=== PATIENT | male | born 1965 | race Two or more races ===

== ENCOUNTER → 2018-06-16 | Outpatient (CLI) | payer OTHER ==
[2018-06-16 08:16] LABS: Basophils # (auto) 0 uL; Basophils % (auto) 0.9 % (0.0-2.0); Eosinophils # (auto) 0.1 uL; Eosinophils % (auto) 2.4 % (0.0-7.0); Hematocrit 43.9 % (41.0-53.0); Hemoglobin 14.7 g/dL (13.5-17.5); Lymphocytes # (auto) 1.9 uL; Lymphocytes % (auto) 37.1 % (10.0-50.0); Mean Corpuscular Hgb Conc. 33.6 g/dL (32.0-36.0); Mean Corpuscular Volume 101.4 fL (80.0-100.0); Monocytes # (auto) 0.4 uL; Neutrophils # (auto) 2.7 uL; Neutrophils % (auto) 51.6 % (37.0-80.0); Platelet Count (auto) 208 10^3/uL (140-450); Red Blood Cells 4.33 10^6/uL (4.5-5.90); Red Cell Distribution Width 13.7 % (11.8-14.3); White Blood Cell 5.2 10^3/uL (4.4-10.8)
[2018-06-16 08:29] LABS: Urine Bacteria NONE SEEN /hpf (None Seen); Urine Blood Negative /uL (Negative); Urine Budding Yeast MANY /hpf (None Seen); Urine Specific Gravity 1.015 (1.001-1.035); Urine WBC 6 /hpf (0 - 3); Urine WBC Clumps PRESENT /hpf (None Seen)
[2018-06-16 08:35] LABS: INR 0.94 (0.9-1.15); Prothrombin Time 10.1 sec (9.27-12.13)
[2018-06-16 08:38] LABS: Calcium 9.5 mg/dL (8.5-10.1); Potassium 4.1 mmol/L (3.5-5.1)
[2018-06-16 08:40] LABS: Free T4 (Free Thyroxine) 1.16 ng/dL (0.89-1.76)
[2018-06-16 08:46] LABS: BUN/Creatinine Ratio 20.2; Bilirubin, Total 0.3 mg/dL (0.2-1.0); Total Protein 7.1 g/dL (6.4-8.2)
[2018-06-16 10:17] LABS: Alcohol, Urine < 3.0 mg/dL (0-5); Amphetamine Screen, Urine NEGATIVE (NEGATIVE); Barbiturate Scree,Urine NEGATIVE (NEGATIVE); Benzodiazephine Screen, Urine NEGATIVE (NEGATIVE); Cannabinoid Screen, Urine POSITIVE (NEGATIVE); Cocaine Screen, Urine NEGATIVE (NEGATIVE); Phencyclidine Screen, Urine NEGATIVE (NEGATIVE)
[2018-06-16 10:23] LABS: Opiate Scree,Urine NEGATIVE (NEGATIVE)
[2018-06-17 12:36] LABS: Hepatitis A Ab IgM Negative
[2018-06-17 12:37] LABS: Hepatitis B Core IgM Negative; Hepatitis B Surface Antigen Negative (Negative); Hepatitis C Antibody Negative (Negative)
== END | disposition home or self-care (01) ==
LOC: LAB 07:34
PROVIDERS: ATTEND Internal Medicine
DX: R63.4 Abnormal weight loss (principal)
CPT/HCPCS: 36415; 80053; 80061; 80074; 80307; 81001; 82105; 82607; 83036; 84439; 84443; 85025; 85610; 85730; 86703

== ENCOUNTER → 2018-06-25 | Outpatient (CLI) | payer OTHER ==
[~2018-06-25] MED LIST: ALBUTEROL SULF 2.5 MG/0.5ML(0.5%) NEB SOLN ONE
== END | disposition home or self-care (01) ==
LOC: RT 08:43
PROVIDERS: ATTEND Internal Medicine Pulmonary Disease
DX: J44.9 Chronic obstructive pulmonary disease, unspecified (principal)
CPT/HCPCS: 94060; J7611

== ENCOUNTER → 2018-06-30 | Outpatient (CLI) | payer OTHER | END | disposition home or self-care (01) | LOC: LAB 07:20 | PROVIDERS: ATTEND Internal Medicine | DX: Z01.812 Encounter for preprocedural laboratory examination (principal) | CPT/HCPCS: 36415; 82565; 84520 ==

== ENCOUNTER 2018-07-19 18:10 | Inpatient (IN) | payer OTHER ==
[~2018-07-19] VITALS: Ht 170.2 cm; Wt 50.4 kg
[2018-07-19] MEDS ORDERED: MORPHINE SULFATE 4 MG/ML SYR/VIAL IV ONE (19:30)
[2018-07-19] MEDS ORDERED: SODIUM CHLORIDE 0.9% 250 ML IV ONE (19:30)
[2018-07-19] MEDS ORDERED: ONDANSETRON HCL 4 MG/2 ML VIAL IV ONE (19:30)
[2018-07-19 19:46] LABS: Basophils # (auto) 0 uL; Eosinophils # (auto) 0 uL; Eosinophils % (auto) 0.4 % (0.0-7.0); Hemoglobin 14.1 g/dL (13.5-17.5); Lymphocytes # (auto) 2.8 uL; Mean Corpuscular Hgb Conc. 34.1 g/dL (32.0-36.0); Monocytes # (auto) 0.6 uL; Neutrophils # (auto) 3.8 uL; Nucleated Red Blood Cells % 0.1 %; White Blood Cell 7.2 10^3/uL (4.4-10.8)
[2018-07-19 19:48] LABS: Basophils % (auto) 0.4 % (0.0-2.0); Hematocrit 41.2 % (41.0-53.0); Lymphocytes % (auto) 38.3 % (10.0-50.0); Mean Corpuscular Hemoglobin 34.5 pg (28.0-32.0); Monocytes % (auto) 8.7 % (0.0-12.0); Neutrophils % (auto) 52.2 % (37.0-80.0); Platelet Count (auto) 209 10^3/uL (140-450); Red Blood Cells 4.08 10^6/uL (4.5-5.90); Red Cell Distribution Width 13.2 % (11.8-14.3)
[2018-07-19 19:58] LABS: Albumin 3.9 g/dL (3.4-5.0); Anion Gap 14 (5-15); Blood Urea Nitrogen 19 mg/dL (7-18); Carbon Dioxide 18 mmol/L (21-32); Chloride 106 mmol/L (98-107); Glucose 90 mg/dL (74-106); Magnesium 2.3 mg/dL (1.6-2.6); Potassium 4.1 mmol/L (3.5-5.1); Sodium 138 mmol/L (136-145)
[2018-07-19 20:05] LABS: Alanine Aminotransferase 20 U/L (16-61); Alkaline Phosphatase 70 U/L (45-117); Aspartate Aminotransferase 26 U/L (15-37); Bilirubin, Total 0.8 mg/dL (0.2-1.0); GFR African American 93 mL/min; GFR Non-African American 77 mL/min; Total Protein 7.1 g/dL (6.4-8.2)
[2018-07-19] MEDS ORDERED: FAMOTIDINE (10MG/ML) 2ML VL IV ONE (21:15)
[2018-07-19] MEDS ORDERED: methylPREDNISolone SOD SUCC 125 MG/2 ML VL IV ONE (21:15)
[2018-07-19] MEDS ORDERED: PROMETHAZINE HCL 25 MG/ML 1ML IV ONE (21:15)
[2018-07-19] MEDS ORDERED: IPRATROPIUM BROM 0.5 MG/2.5ML INH SOL NEB ONE (21:15)
[2018-07-19 21:16] VITALS: BP 100/56
[2018-07-19 21:37] LABS: BUN/Creatinine Ratio 17.6
[2018-07-19 22:33] LABS: INR 1.01 (0.9-1.15); Partial Thromboplastin Time 28.2 sec (23.64-32.05)
[2018-07-19 23:04] LABS: BUN/Creatinine Ratio 19.6; Calcium 8.1 mg/dL (8.5-10.1); Potassium 3.8 mmol/L (3.5-5.1)
[2018-07-19] MEDS ORDERED: ACETAMINOPHEN 500 MG TAB PO PRN (23:15)
[2018-07-19] MEDS ORDERED: ONDANSETRON HCL 4 MG/2 ML VIAL IV PRN (23:15)
[2018-07-19] MEDS ORDERED: TEMAZEPAM 15 MG CAP PO PRN (23:15)
[2018-07-19] MEDS ORDERED: ALBUTEROL SULF 2.5 MG/0.5ML(0.5%) NEB SOLN NEB PRN (23:15)
[2018-07-19] MEDS ORDERED: IPRATROPIUM BROM 0.5 MG/2.5ML INH SOL NEB PRN (23:15)
[2018-07-20] VITALS (7 sets, daily range): BP systolic 91–121; BP diastolic 56–84
--- NOTE | 2018-07-20 01:30 | NUR ---
MS admit from ER SHANELARRY admitted to [facility]. Patient oriented to JERMAINE SALINAS RN primary RN, unit, room, bed, and unit policies regarding patient care and visiting hours. Patient weighed by bedscale and encouraged to call if they need something. All questions and concerns addressed, patient verbalized understanding.
[2018-07-20] MEDS: HYDROcodone-ACET 5/325MG TAB PO PRN ×4 (02:00→22:20)
[2018-07-20] MEDS: ALBUTEROL SULF 2.5 MG/0.5ML(0.5%) NEB SOLN NEB SCH ×6 (02:02→23:33)
[2018-07-20] MEDS: IPRATROPIUM BROM 0.5 MG/2.5ML INH SOL NEB SCH ×6 (02:02→23:33)
--- NOTE | 2018-07-20 04:36 | NUR ---
Rounds Patient in bed asleep with breathing even and unlabored. No signs of pain noted. Will continue to monitor.
[2018-07-20] MEDS ORDERED: PANTOPRAZOLE 40 MG TAB PO SCH (06:00)
[2018-07-20 06:30] LABS: Basophils # (auto) 0 uL; Eosinophils # (auto) 0 uL; Hemoglobin 13.3 g/dL (13.5-17.5); Monocytes # (auto) 0 uL; Monocytes % (auto) 0.7 % (0.0-12.0); White Blood Cell 6.4 10^3/uL (4.4-10.8)
[2018-07-20 06:34] LABS: Basophils % (auto) 0.5 % (0.0-2.0); Eosinophils % (auto) 0.2 % (0.0-7.0); Hematocrit 39.4 % (41.0-53.0); Lymphocytes # (auto) 0.6 uL; Mean Corpuscular Hemoglobin 34.5 pg (28.0-32.0); Mean Corpuscular Hgb Conc. 33.7 g/dL (32.0-36.0); Mean Corpuscular Volume 102.2 fL (80.0-100.0); Neutrophils # (auto) 5.7 uL; Neutrophils % (auto) 88.6 % (37.0-80.0); Platelet Count (auto) 181 10^3/uL (140-450); Red Blood Cells 3.85 10^6/uL (4.5-5.90); Red Cell Distribution Width 13.4 % (11.8-14.3)
[2018-07-20 06:57] LABS: Calcium 8.4 mg/dL (8.5-10.1); Potassium 4.4 mmol/L (3.5-5.1)
[2018-07-20 07:01] LABS: Amylase 105 U/L (25-115); Lipase 114 U/L (73-393)
--- NOTE | 2018-07-20 07:28 | NUR ---
Endorsed care to day shift RN.
--- NOTE | 2018-07-20 08:00 | NUR ---
RECEIVED PATIENT ALERT AND ORIENTED X4, NOT IN DISTRESS LUNG SOUNDS WHEEZING IN BILATERAL UPPER AND LOWER LOBES, RR=18 SAT=95%, DENIED SOB OR CHEST PAIN, DEEP BREATHING AND COUGHING WAS ENCOURAGED, VERBALIZED AND DEMONSTRATED WELL, HEART RATE=78, ABDOMEN SOFT WITH ACTIVE BS, C/O LT. LOWER QUADRANT ABDOMINAL PAIN L=05/19, LAST BM=07/19/18 REPORTED, TOLERATED 100% OF BREAKFAST TRAY, BILATERAL UPPER AND LOWER EXTREMITIES EQUALLY STRONG STRENGTH, RADIAL AND PEDAL PULSES PALPABLE, RESTING ON BED, HEAD OF BED ON LOW POSITION, RAILS UP X2, CALL LIGHT ON REACH, PENDING GI CONSULT TODAY, WILL CONTINUE MONITORING.
--- NOTE | 2018-07-20 11:27 | NUR ---
Not in distress, C/O pain L=08/18, [place] PO PRN was given, resting on bed, family at bed side, pending Stool Sample, sample container and hut provided in bathroom, education was provided, verbalized understanding, will continue monitoring.
[2018-07-20] MEDS: SODIUM CHLORIDE 0.9% 1,000 ML IV SCH (15:00)
--- NOTE | 2018-07-20 15:00 | NUR ---
NOT IN DISTRESS, DENIED PAIN, AT THIS MOMENT, AT BED SIDE, GI CONSULT WAS DONE, PENDING CARDIAC AND PULMONARY CONSULT, WILL CONTINUE MONITORING.
--- NOTE | 2018-07-20 19:10 | NUR ---
Opening Shift Note Assumed care of patient. Patient awake and alert, at bed side. No S/S of distress/SOB or pain. Instructed on POC and to call for assist PRN, will continue to monitor for changes PRN.
--- NOTE | 2018-07-20 19:42 | NUR ---
DENIED PAIN, RESTING ON BED, SITTER AT BED SIDE, REPORT WAS GIVEN TO THE CORRECTIONAL COUNSELOR/CASE MANAGER EZEQUIEL. Addendum: 07/20/18 at 1951 by Neisha Lagos RN WRONG TEXT
--- NOTE | 2018-07-20 19:52 | NUR ---
DENIED PAIN, RESTING ON BED, REPORT WAS GIVEN TO THE FOREMAN/PILE DRIVING AND ERECTION RN.
[2018-07-20] MEDS: PANTOPRAZOLE 40 MG TAB PO SCH (22:14)
[2018-07-20 22:17] LABS: Urine Bacteria NONE SEEN /hpf (None Seen); Urine Blood Negative /uL (Negative); Urine Hyaline Cast FEW /lpf (0 - 2); Urine Specific Gravity 1.022 (1.001-1.035); Urine WBC 1 /hpf (0 - 3)
[2018-07-20 22:33] LABS: Alcohol, Urine < 3.0 mg/dL (0-5); Amphetamine Screen, Urine NEGATIVE (NEGATIVE); Barbiturate Scree,Urine NEGATIVE (NEGATIVE); Benzodiazephine Screen, Urine NEGATIVE (NEGATIVE); Cocaine Screen, Urine NEGATIVE (NEGATIVE); Opiate Scree,Urine POSITIVE (NEGATIVE); Phencyclidine Screen, Urine NEGATIVE (NEGATIVE)
[2018-07-20 22:45] LABS: Cannabinoid Screen, Urine POSITIVE (NEGATIVE)
[2018-07-21] MEDS: ALBUTEROL SULF 2.5 MG/0.5ML(0.5%) NEB SOLN NEB SCH ×6 (02:00→22:00)
[2018-07-21] MEDS: IPRATROPIUM BROM 0.5 MG/2.5ML INH SOL NEB SCH ×6 (02:00→22:00)
[2018-07-21] MEDS: HYDROcodone-ACET 5/325MG TAB PO PRN ×2 (02:00→14:25)
[2018-07-21 06:25] LABS: Basophils # (auto) 0 uL; Eosinophils # (auto) 0 uL; Eosinophils % (auto) 0.1 % (0.0-7.0); Mean Corpuscular Hemoglobin 34.3 pg (28.0-32.0); Monocytes # (auto) 0.9 uL; Neutrophils # (auto) 10.4 uL; White Blood Cell 13.2 10^3/uL (4.4-10.8)
[2018-07-21 06:28] LABS: Basophils % (auto) 0.2 % (0.0-2.0); Calcium 8.7 mg/dL (8.5-10.1); Hematocrit 38.7 % (41.0-53.0); Hemoglobin 13.1 g/dL (13.5-17.5); Lymphocytes # (auto) 1.8 uL; Lymphocytes % (auto) 13.3 % (10.0-50.0); Mean Corpuscular Hgb Conc. 33.9 g/dL (32.0-36.0); Monocytes % (auto) 7.2 % (0.0-12.0); Neutrophils % (auto) 79.2 % (37.0-80.0); Platelet Count (auto) 192 10^3/uL (140-450); Potassium 3.9 mmol/L (3.5-5.1); Red Blood Cells 3.84 10^6/uL (4.5-5.90); Red Cell Distribution Width 13.3 % (11.8-14.3)
[2018-07-21] MEDS: SODIUM CHLORIDE 0.9% 1,000 ML IV SCH (07:40)
--- NOTE | 2018-07-21 08:00 | NUR ---
RECEIVED PATIENT ALERT AND ORIENTED X4, NOT IN DISTRESS LUNG SOUNDS WHEEZING IN BILATERAL UPPER AND LOWER LOBES, RR=18 SAT=96%, DENIED SOB OR CHEST PAIN, DEEP BREATHING AND COUGHING WAS ENCOURAGED, VERBALIZED AND DEMONSTRATED WELL, HEART RATE=66, ABDOMEN SOFT WITH ACTIVE BS, KEEP NPO, LAST BM=07/19/18 REPORTED, BILATERAL UPPER AND LOWER EXTREMITIES MILD WEAKNESS NOTED, RADIAL AND PEDAL PULSES PALPABLE, RESTING ON BED, HEAD OF BED ON LOW POSITION, RAILS UP X2, CALL LIGHT ON REACH, PENDING PULMONARY CONSULT AND CARDIAC STRESS TEST TODAY, WILL CONTINUE MONITORING.
--- NOTE | 2018-07-21 08:11 | NUR ---
[facility] WAS CALLED FOR STRESS TEST TIMING FOLLOW UP, LEFT A MESSAGE AND WAITING FOR CALL BACK.
[2018-07-21] MEDS ORDERED: ADENOSINE 42 MG in GIVE UN-DILUTED 0 ML IV STA (08:34)
[2018-07-21 09:00] VITALS: BP_SYST 105; BP_SYST 118; BP_DIAS 65; BP_DIAS 82
[2018-07-21 09:29] VITALS: BP 135/78
--- NOTE | 2018-07-21 10:44 | NUR ---
WENT ON WC TO STRESS TEST AND CAME BACK, TOLERATED WELL, SANDWICH AND ORANGE JUICE PROVIDED, AT BED SIDE, NOT IN DISTRESS, DENIED PAIN, SITTING ON BED, WILL CONTINUE MONITORING.
[2018-07-21] MEDS: PANTOPRAZOLE 40 MG TAB PO SCH ×2 (11:39→22:00)
[2018-07-21 13:00] VITALS: BP 111/70
[2018-07-21 17:00] VITALS: BP 131/79
--- NOTE | 2018-07-21 18:19 | NUR ---
RT NOTE: PT SEEN FOR MED NEB TX @ THIS TIME. PT REFUSED MED NEB. PT STATED "GO AWAY I WANT TO SLEEP" UNABLE TO CHECK VITAL SIGNS DUE TO PT BEING COVERED WITH BLANKETS. WILL ATTEMPT AGAIN @ 2200. NO SOB OR DISTRESS NOTED @ THIS TIME.
--- NOTE | 2018-07-21 19:23 | NUR ---
NOT IN DISTRESS, DENIED PAIN, RESTING ON BED, REPORT WAS GIVEN TO THE TELEVISION AUDIO ENGINEER RN.
--- NOTE | 2018-07-21 19:40 | NUR ---
Opening Shift Note Assumed care of patient. Patient laying comfortably in bed, sleeping eye mask on, breathing even, no signs of respiratory distress, no facial grimace for pain. at bedside at this time. Patient wants to go to sleep and does not want to be disturbed. Patient refusing physical assessment and all patient care at this time. Patient aware of POC and to call for assist PRN, will continue to monitor for changes Q1hr and PRN.
--- NOTE | 2018-07-21 22:00 | NUR ---
Patient refusing scheduled medication and all patient care at this time. Will continue to monitor q 1 hour and prn.
--- NOTE | 2018-07-21 22:00 | NUR ---
PATIENT REFUSED 22:00 VITALS. EZEQUIEL SAUCEDA.
--- NOTE | 2018-07-21 22:01 | NUR ---
RT NOTE: PT SEEN FOR MED NEB TX @ THIS TIME. PT REFUSED. PT STATED HE WANTED TO BE LEFT ALONE TO SLEEP AND NOT TO BE WOKEN UP AGAIN. SPO2 99% ON ROOM AIR, HR 98, RR 22. NO SOB OR DISTRESS NOTED.
[2018-07-22] MEDS: SODIUM CHLORIDE 0.9% 1,000 ML IV SCH (00:39)
--- NOTE | 2018-07-22 05:00 | NUR ---
PATIENT REFUSED 05:00 VITALS. EZEQUIEL SAUCEDA.
[2018-07-22] MEDS: ALBUTEROL SULF 2.5 MG/0.5ML(0.5%) NEB SOLN NEB SCH ×3 (06:00→09:38)
[2018-07-22] MEDS: IPRATROPIUM BROM 0.5 MG/2.5ML INH SOL NEB SCH ×3 (06:00→09:38)
--- NOTE | 2018-07-22 06:10 | NUR ---
Respiratory note: SCHEDULED MED NEB TX NOT GIVEN. PT REFUSED AND STATED HE DID NOT WANT ANYTHING DONE UNTIL D/C. NO RESP DISTRESS NOTED. NO VITALS TAKEN.
--- NOTE | 2018-07-22 07:10 | NUR ---
Patient had been refusing care for the whole shift. Patient refused vital signs, blood draw, and scheduled medication. Patient's called, updated with patient's status after password verification. All questions and concerns addressed. Patient's verbalized understanding. Report given to AtiyaRN and EZEQUIEL Munson.
--- NOTE | 2018-07-22 07:45 | NUR ---
Opening Note Upon entering room, patient was asleep with eyemask on, no s/s of distress at this time. Will continue to monitor Q1hr and PRN. Addendum: 07/22/18 at 1041 by PABLO HOLT RN RN Call light within reach.
--- NOTE | 2018-07-22 08:30 | NUR ---
Patient refusing all care at this time. Will check on patient Q1h. Addendum: 07/22/18 at 1047 by PABLO HOLT RN RN Amended: Links added.
--- NOTE | 2018-07-22 09:38 | NUR ---
Respiratory note: MARYA MED NEB TX NOT ADMINISTERED. PT REFUSING AT THIS TIME. NO RESP DISTRESS NOTED.
--- NOTE | 2018-07-22 09:57 | NUR ---
Patient requesting to leave AMA Upon entering room to give patient medication, patient states "It's time to go, I have no reason to be here." Primary RN asked if he wanted to talk to the doctor, asked how he was feeling for the day, if he wanted his medications, patient stated "It's time to go, thank you." Primary RN asked if he would sign an AMA form, and he said "yes". Primary RN asked if he has a ride, he stated "I can get a ride when it's time to go." Primary RN stated, "I will arrange that for you." Will get form for patient to sign. Will notify gore seamer.
--- NOTE | 2018-07-22 10:20 | NUR ---
Patient ready to leave Patient two IVs to the right forearm removed and pressure bandages applied, removed his Patient ID band. AMA form is signed. No s/s of distress at time of departure. Patient ambulatory upon departure.
--- NOTE | 2018-07-22 10:25 | NUR ---
Patient Signed AMA form Patient stated "I have no problem waiting in the lobby for my ."
== END 2018-07-22 10:30 | disposition left against medical advice (07) | DRG 191 ==
LOC: ER 18:19 → OVERFLOW 23:28 → WEST WING 23:47
PROVIDERS: ADMIT Nurse Practitioner Family; ATTEND Internal Medicine
DX: J44.1 Chronic obstructive pulmonary disease with (acute) exacerbation (principal); Z68.1 Body mass index [BMI] 19.9 or less, adult; J84.9 Interstitial pulmonary disease, unspecified; I10 Essential (primary) hypertension; E86.0 Dehydration; R63.4 Abnormal weight loss; R10.9 Unspecified abdominal pain; Z53.21 Procedure and treatment not carried out due to patient leaving prior to being seen by health care provider; Z88.8 Allergy status to other drugs, medicaments and biological substances; Z87.891 Personal history of nicotine dependence
CPT/HCPCS: 36415; 71045; 74176; 78452; 80048; 80053; 80307; 81001; 82150; 83690; 83735; 84484; 85025; 85379; 85610; 85730; 93005; 93017; 93306; 94640; 96361; 96374; 96375; G0378; J0153; J2405; J3490

== ENCOUNTER 2018-09-06 09:14 | Day surgery (SDC) | payer OTHER ==
[2018-09-03 14:39] LABS: Basophils # (auto) 0 uL; Eosinophils # (auto) 0.1 uL; Monocytes # (auto) 0.6 uL; Neutrophils # (auto) 4.7 uL
[2018-09-03 14:40] LABS: Basophils % (auto) 0.6 % (0.0-2.0); Eosinophils % (auto) 0.9 % (0.0-7.0); Hematocrit 42.9 % (41.0-53.0); Hemoglobin 14.9 g/dL (13.5-17.5); Lymphocytes % (auto) 35.3 % (10.0-50.0); Mean Corpuscular Hemoglobin 35.1 pg (28.0-32.0); Mean Corpuscular Hgb Conc. 34.7 g/dL (32.0-36.0); Mean Corpuscular Volume 101.2 fL (80.0-100.0); Monocytes % (auto) 7.2 % (0.0-12.0); Platelet Count (auto) 230 10^3/uL (140-450); Red Blood Cells 4.24 10^6/uL (4.5-5.90); White Blood Cell 8.4 10^3/uL (4.4-10.8)
[2018-09-03 14:56] LABS: Albumin 4.2 g/dL (3.4-5.0); Calcium 9.2 mg/dL (8.5-10.1); Potassium 4.3 mmol/L (3.5-5.1); Urine Bacteria NONE SEEN /hpf (None Seen); Urine Blood Negative /uL (Negative); Urine Mucus FEW (None Seen); Urine Specific Gravity 1.011 (1.001-1.035); Urine WBC <1 /hpf (0 - 3)
[2018-09-03 14:59] LABS: BUN/Creatinine Ratio 11.3; Bilirubin, Total 0.6 mg/dL (0.2-1.0); Total Protein 7.6 g/dL (6.4-8.2)
[2018-09-03 15:00] LABS: INR 0.95 (0.9-1.15); Partial Thromboplastin Time 28.3 sec (23.64-32.05)
[~2018-09-06] VITALS: Ht 175.3 cm; Wt 52.2 kg
[~2018-09-06 09:14] MED LIST changes: +ALBUAER3 IN; -ALBUTEROL SULF 2.5 MG/0.5ML(0.5%) NEB SOLN ONE
[2018-09-06] MEDS ORDERED: MIDAZOLAM HCL 1MG/1ML-2 ML VIAL ONE (10:28)
[2018-09-06] MEDS ORDERED: fentaNYL CITRATE 100 MCG/2 ML VL ONE (10:29)
[2018-09-06] MEDS ORDERED: PROPOFOL 10 MG/ML 20 ML IV ONE (10:29)
[2018-09-06] MEDS ORDERED: DexAMETHasone SOD PHOS 10MG/1ML VIAL INJ ONE (10:29)
[2018-09-06] MEDS ORDERED: MEPERIDINE HCL (25 MG/ML) 1ML VIAL ONE ×2 (10:29→10:36)
[2018-09-06] MEDS ORDERED: HYDROmorphone HCL 2 MG/ML VL IV PRN (10:30)
[2018-09-06] MEDS ORDERED: MIDAZOLAM HCL 1MG/1ML-2 ML VIAL IV PRN (10:30)
[2018-09-06] MEDS ORDERED: ePHEDrine SULFATE 50 MG/ML AMP IV PRN (10:30)
[2018-09-06] MEDS ORDERED: LABETALOL HCL 5 MG/ML 4ML SYRINGE IV PRN (10:30)
[2018-09-06] MEDS ORDERED: KETOROLAC TROMETH 15 mg/ml 1ML VL IV ONE (10:30)
[2018-09-06] MEDS ORDERED: ONDANSETRON HCL 4 MG/2 ML VIAL IV ONE (10:30)
[2018-09-06 11:30] VITALS: BP 101/61
[2018-09-06] MEDS ORDERED: MORPHINE SULFATE 4 MG/ML SYR/VIAL IV ONE (12:00)
== END 2018-09-06 11:35 | disposition home or self-care (01) ==
LOC: GI 09:14
PROVIDERS: ATTEND Internal Medicine Gastroenterology
DX: K92.1 Melena (principal); K29.50 Unspecified chronic gastritis without bleeding; K57.30 Diverticulosis of large intestine without perforation or abscess without bleeding; K64.8 Other hemorrhoids; K44.9 Diaphragmatic hernia without obstruction or gangrene; K22.8 Other specified diseases of esophagus; J44.9 Chronic obstructive pulmonary disease, unspecified; M19.90 Unspecified osteoarthritis, unspecified site; G40.802 Other epilepsy, not intractable, without status epilepticus; Z98.890 Other specified postprocedural states; Z79.899 Other long term (current) drug therapy; Z87.891 Personal history of nicotine dependence
CPT/HCPCS: 36415; 43239; 45378; 80053; 81001; 85025; 85610; 85730; 88305; 88342; 93005; J1100; J2175; J2250; J2704; J3010; J7030

== ENCOUNTER → 2018-09-23 | Outpatient (CLI) | payer OTHER | END | disposition home or self-care (01) | LOC: LAB 16:02 | PROVIDERS: ATTEND Internal Medicine Gastroenterology | DX: K92.1 Melena (principal); R10.9 Unspecified abdominal pain | CPT/HCPCS: 82784; 83516; 86255 ==